=== PATIENT | female | born 1950 | race Caucasian/White ===

== ENCOUNTER 2016-09-01 09:44 | Emergency (ER) | payer MEDICARE, BC ==
[~2016-09-01] VITALS: Ht 157.5 cm; Wt 71.8 kg
[~2016-09-01 09:44] MED LIST: BUPROPION SR150 MG PO; CORGARD 40M40 MG/TAB PO; CORGARD40 MG PO; Calcium PO; FERROUS SU325 MG/TAB PO; FISH OIL CONC1000 MG PO; FOLIC ACID PO; GLUCOSAMINE/CHONDROI PO; LEXAPRO 10MG10 MG PO; LEXAPRO10 MG PO; METAMUCIL1 WAF PO; MULTIPLE VITAMI1 CAP PO; PHENTERMINE15 MG PO; TYLENOL 500MG500 MG PO; ULTRAM50 MG PO; VITAMIN C500 MG PO; VOLTAREN25 MG PO; WELLBUTRIN SR150 M1 PO
[2016-09-01 10:17] VITALS: TEMP 98.1
[2016-09-01 11:16] LABS: BASO # 0.1 (0.0-0.2); BASO % 1.1 % (0.0-2.0); EOS # 0.2 (0.0-0.7); EOS % 4.9 % (0-4.0); GRAN # 2.5 (1.4-6.5); HEMATOCRIT 37.7 % (37.0-47.0); LYMPH # 1.5 (1.2-3.4); LYMPH % 32.7 % (20.0-51.0); MEAN CELL VOLUME 94 fl (80.0-100.0); MEAN CORPUSCULAR HEMOGLOBIN 32 pg (27.0-31.0); MEAN CORPUSCULAR HGB CONC 35 g/dl (33.0-37.0); MEAN PLATELET VOLUME 9.4 fl (7.4-10.4); MONO # 0.4 (0.1-0.6); MONO % 8.1 % (1.7-9.3); PLATELET COUNT 261 K/mm3 (130-400); RED BLOOD COUNT 4.03 M/mm3 (4.10-5.30); REDCELL DISTRIBUTION WIDTH-CV 12.1 % (11.5-14.5); WHITE BLOOD COUNT 4.7 K/mm3 (4.8-10.8)
[2016-09-01 11:20] LABS: ADJUSTED CALCIUM 9.2 mg/dL (8.4-10.2); ALANINE AMINOTRANSFERASE 26 U/L (9-52); ALBUMIN 4.1 gm/dL (3.5-5.0); ALKALINE PHOSPHATASE 63 U/L (50-136); ANION GAP 10 mmol/L (7-16); BILIRUBIN,TOTAL 0.8 mg/dL (0.0-1.0); BLOOD UREA NITROGEN 10 mg/dL (7-17); CALCIUM 9.3 mg/dL (8.4-10.2); CARBON DIOXIDE 27 mmol/L (22-30); CHLORIDE 100 mmol/L (98-107); CREATININE, serum 0.73 mg/dL (0.52-1.25); GLUCOSE 91 mg/dL (74-106); LIPASE 103 U/L (23-300); POTASSIUM 4.1 mmol/L (3.4-5.0); SODIUM 137 mmol/L (137-145); TOTAL PROTEIN 6.8 gm/dL (6.4-8.2)
[2016-09-01 11:21] LABS: C-REACTIVE PROTEIN < 0.5 mg/dL (0.0-0.9)
[2016-09-01 11:30] LABS: TROPONIN-I < 0.012 ng/mL (0.000-0.034)
[2016-09-01 12:05] LABS: PH 7 (5-8); SQUAMOUS EPITHELIAL 0-2 /hpf; URINE APPEARANCE Hazy; URINE BACTERIA Rare /hpf; URINE BILIRUBIN Negative (NEGATIVE); URINE BLOOD Negative (NEGATIVE); URINE COLOR Yellow; URINE GLUCOSE Negative (NEGATIVE); URINE KETONE Negative (NEGATIVE); URINE UROBILINOGEN Negative (NEGATIVE); URINE WBC 0-2 /hpf
[2016-09-01] MEDS ORDERED: PROTONIX 40MG T40 MG PO (12:45)
[2016-09-01 13:12] VITALS: BP 167/82; PULSE 55
== END 2016-09-01 13:14 | disposition home or self-care (01) ==
LOC: COL.ER 09:44
PROVIDERS: Emergency Medicine
DX: R10.84 Generalized abdominal pain (principal); I10 Essential (primary) hypertension; Z98.84 Bariatric surgery status
CPT/HCPCS: J2405; J7030; Q9967

== ENCOUNTER 2016-10-26 11:04 | Outpatient (RCR) | payer MEDICARE, BC ==
[~2016-10-26 11:04] MED LIST changes: +PROTONIX 40MG T40 MG PO
== END 2016-11-01 09:43 | disposition still patient (30) ==
LOC: WSPT 11:04
DX: Z01.818 Encounter for other preprocedural examination (principal); M19.011 Primary osteoarthritis, right shoulder
CPT/HCPCS: G8984-GP; G8985-GP; G8986-GP

== ENCOUNTER 2017-01-23 09:30 | Outpatient (RCR) | payer MEDICARE, BC | END 2017-01-29 | LOC: WSPT | DX: M25.511 Pain in right shoulder (principal); G89.18 Other acute postprocedural pain; Z98.890 Other specified postprocedural states | CPT/HCPCS: G0283-GP; G8984-GP; G8985-GP ==

== ENCOUNTER 2017-02-13 08:15 | Outpatient (RCR) | payer MEDICARE, BC | END 2017-02-16 08:56 | LOC: WSPT 08:15 | DX: Z98.890 Other specified postprocedural states (principal) | CPT/HCPCS: G8985-GP; G8986-GP ==

== ENCOUNTER → 2019-05-03 | Outpatient (CLI) | payer MEDICARE, BC | LOC: MC.RAD 09:14 | DX: Z12.31 Encounter for screening mammogram for malignant neoplasm of breast (principal) ==

== ENCOUNTER 2020-10-27 22:15 | Emergency (ER) | payer MEDICARE ==
[~2020-10-27] VITALS: Ht 154.9 cm; Wt 65.9 kg
[2020-10-27] MEDS ORDERED: PREDNISONE20 MG PO (23:19)
[2020-10-27 23:23] VITALS: BP 133/67; PULSE 77; TEMP 98.1
== END 2020-10-27 23:23 | disposition home or self-care (01) ==
LOC: COL.ER 22:15
DX: T63.441A Toxic effect of venom of bees, accidental (unintentional), initial encounter (principal); K21.9 Gastro-esophageal reflux disease without esophagitis; Z79.899 Other long term (current) drug therapy
CPT/HCPCS: J7512

== ENCOUNTER → 2022-06-23 | Outpatient (CLI) | payer MEDICARE ==
[~2022-06-23] MED LIST changes: +PREDNISONE20 MG PO
== END ==
LOC: COL.RAD 10:54
DX: M47.816 Spondylosis without myelopathy or radiculopathy, lumbar region (principal); M43.17 Spondylolisthesis, lumbosacral region; R31.9 Hematuria, unspecified

== ENCOUNTER 2023-09-09 09:39 | Emergency (ER) | payer MEDICARE ==
[~2023-09-09] VITALS: Ht 154.9 cm; Wt 69.1 kg
[2023-09-09 09:45] VITALS: TEMP 97.3
[2023-09-09 09:56] LABS: BASO % 0.3 % (0.0-2.0); EOS % 0.2 % (0.0-4.0); GRAN # 10.2 K/mm3 (1.4-6.5); GRAN % 84.2 % (42.2-75.2); HEMOGLOBIN 12.8 g/dl (12.5-16.0); LYMPH # 0.9 K/mm3 (1.2-3.4); LYMPH % 7.5 % (20.0-51.0); MEAN CELL VOLUME 95 fl (80.0-100.0); MEAN CORPUSCULAR HEMOGLOBIN 33 pg (27-31); MEAN CORPUSCULAR HGB CONC 35 g/dl (33.0-37.0); MEAN PLATELET VOLUME 8.8 fl (7.4-10.4); MONO # 0.9 K/mm3 (0.1-0.6); MONO % 7.6 % (1.7-9.3); PLATELET COUNT 235 K/mm3 (130-400); RED BLOOD COUNT 3.88 M/mm3 (4.10-5.30); REDCELL DISTRIBUTION WIDTH-CV 12.4 % (11.5-14.5)
[2023-09-09 09:57] LABS: HEMATOCRIT 36.9 % (37.0-47.0)
[2023-09-09 10:01] LABS: INR 1.2 (0.8-3.0); PROTHROMBIN TIME 13.2 SECONDS (9.7-12.8)
[2023-09-09 10:04] LABS: PARTIAL THROMBOPLASTIN TIME 29.4 SECONDS (26.0-37.0)
[2023-09-09 10:14] LABS: ALANINE AMINOTRANSFERASE 42 U/L (0-55); ALBUMIN 3.3 g/dL (3.4-4.8); ALKALINE PHOSPHATASE 124 U/L (40-150); ANION GAP 9 mmol/L (7-16); AST,SGOT 44 U/L (5-34); BILIRUBIN,TOTAL 0.9 mg/dL (0.2-1.2); BLOOD UREA NITROGEN 7 mg/dL (10-20); CALCIUM 8.9 mg/dL (8.4-10.2); CHLORIDE 100 mEq/L (98-107); CREATININE, serum 0.77 mg/dL (0.57-1.11); GLUCOSE 132 mg/dL (70-99); MAGNESIUM 1.9 mg/dL (1.6-2.6); POTASSIUM 3.7 mEq/L (3.5-4.5); SODIUM 129 mEq/L (136-145); TOTAL PROTEIN 6.7 g/dl (6.2-8.1)
[2023-09-09 10:22] LABS: TROPONIN-I < 0.010 ng/mL (0.00-0.033)
[2023-09-09] MEDS ORDERED: NS 500 ML IV ONE (11:00)
[2023-09-09 11:39] VITALS: BP 131/60; PULSE 72
== END 2023-09-09 11:40 | disposition home or self-care (01) ==
LOC: COL.ER 09:39
PROVIDERS: Family Medicine
DX: E87.1 Hypo-osmolality and hyponatremia (principal); R07.89 Other chest pain; R06.02 Shortness of breath; Z98.61 Coronary angioplasty status
CPT/HCPCS: J7040

== ENCOUNTER 2024-01-07 08:28 | Emergency (ER) | payer MEDICARE ==
[~2024-01-07] VITALS: Ht 152.4 cm; Wt 67.3 kg
[2024-01-07 08:40] VITALS: TEMP 98.2
[2024-01-07 09:28] LABS: ALBUMIN 3.6 g/dL (3.4-4.8); BILIRUBIN,TOTAL 0.5 mg/dL (0.2-1.2); CALCIUM 9.3 mg/dL (8.4-10.2); CREATININE, serum 0.74 mg/dL (0.57-1.11)
[2024-01-07 09:30] LABS: BASO % 0.4 % (0.0-2.0); EOS # 0.2 K/mm3 (0.0-0.7); EOS % 1.7 % (0.0-4.0); GRAN # 8.1 K/mm3 (1.4-6.5); GRAN % 74.2 % (42.2-75.2); HEMATOCRIT 40.2 % (37.0-47.0); HEMOGLOBIN 13.5 g/dl (12.5-16.0); LYMPH # 1.7 K/mm3 (1.2-3.4); LYMPH % 15.2 % (20.0-51.0); MEAN CELL VOLUME 96 fl (80.0-100.0); MEAN CORPUSCULAR HEMOGLOBIN 32 pg (27-31); MEAN CORPUSCULAR HGB CONC 34 g/dl (33.0-37.0); MEAN PLATELET VOLUME 9.1 fl (7.4-10.4); MONO # 0.9 K/mm3 (0.1-0.6); MONO % 8.2 % (1.7-9.3); PLATELET COUNT 302 K/mm3 (130-400); RED BLOOD COUNT 4.18 M/mm3 (4.10-5.30); REDCELL DISTRIBUTION WIDTH-CV 12.6 % (11.5-14.5)
[2024-01-07] MEDS ORDERED: Iohexol 300 - 100 ML VIAL IV ONE (10:15)
[2024-01-07] MEDS ORDERED: NS 100 ML IV SCH (10:19)
[2024-01-07] MEDS ORDERED: CIPRO 500MG TA500 MG PO (11:05)
[2024-01-07] MEDS ORDERED: FLAGYL500 MG PO (11:05)
[2024-01-07 11:14] VITALS: BP 130/78; PULSE 62
[2024-01-07] MEDS ORDERED: Ciprofloxacin 500 MG TAB PO ONE (11:15)
[2024-01-07] MEDS ORDERED: metroNIDAZOLE 250 MG TAB PO ONE (11:15)
== END 2024-01-07 11:20 | disposition home or self-care (01) ==
LOC: COL.ER 08:28
PROVIDERS: Personal Emergency Response Attendant
DX: K57.32 Diverticulitis of large intestine without perforation or abscess without bleeding (principal)
CPT/HCPCS: Q9967

== ENCOUNTER → 2024-03-13 | Outpatient (CLI) | payer MEDICARE ==
[~2024-03-13] MED LIST changes: +CIPRO 500MG TA500 MG PO; +FLAGYL500 MG PO
== END ==
LOC: COL.RAD 09:15
DX: M25.562 Pain in left knee (principal); Z96.652 Presence of left artificial knee joint
CPT/HCPCS: A9503-JZ